=== PATIENT | female | born 1990 | race Caucasian/White ===

== ENCOUNTER 2022-01-09 06:15 | Outpatient (RCR) | payer OTHER, SELFPAY | END 2022-03-31 10:33 | disposition home or self-care (01) | LOC: ANHDMC 06:15 | PROVIDERS: PCP Internal Medicine; Visit Provider Nurse Practitioner | DX: E11.65 Type 2 diabetes mellitus with hyperglycemia (principal) | CPT/HCPCS: 99199 ==